=== PATIENT | male | born 1980 | race Caucasian/White ===

== ENCOUNTER 2016-09-29 14:52 | Inpatient (IN) | payer OTHER, SELFPAY ==
[~2016-09-29] VITALS: Ht 175.3 cm; Wt 92.1 kg
[2016-09-29] MEDS ORDERED: ALPR0.5T3 (15:11)
[2016-09-29 15:35] LABS: RED CELL DISTRIBUTION WIDTH 12.5 % (11.5-14.5); WHITE BLOOD COUNT 7.8 K/mm3 (4.0-10.0)
[2016-09-29 16:00] LABS: ALBUMIN/GLOBULIN RATIO 1.14 (1.00-1.93); ALKALINE PHOSPHATASE 69 U/L (45-117); ALT/SGPT 36 U/L (12-78); ANION GAP 7 MEQ/L (8-16); AST/SGOT 11 U/L (15-37); BILIRUBIN,DIRECT < 0.1 MG/DL (0.0-0.2); BILIRUBIN,TOTAL 0.3 MG/DL (0.2-1.0); BLOOD UREA NITROGEN 10 MG/DL (7-18); CALCIUM LEVEL 8.6 MG/DL (8.5-10.1); CARBON DIOXIDE LEVEL 27 MEQ/L (21-32); CHLORIDE LEVEL 108 MEQ/L (98-107); GLOMERULAR FILTRATION RATE > 60.0 (>60); GLUCOSE, FASTING 99 MG/DL (70-105); POTASSIUM SERUM 4.2 MEQ/L (3.5-5.1); SODIUM LEVEL 142 MEQ/L (136-145); TOTAL PROTEIN 7.5 GM/DL (6.4-8.2)
[2016-09-29 16:01] LABS: METHADONE URINE NEGATIVE (NEGATIVE)
--- NOTE | 2016-09-29 17:21 | REP ---
CHEST, TWO VIEWS: There is no evidence of acute infiltrate. No pleural effusion is seen. The heart is normal in size. The mediastinal silhouette is unremarkable. The visualized osseous structures are intact. IMPRESSION: No acute pulmonary disease. Signed by Wesley Bejarano MD 09/29/2016 08:06 P
[2016-09-29] MEDS ORDERED: DIVA500T3 PO (17:34)
[2016-09-29] MEDS ORDERED: XANA0.5T PO (17:34)
[2016-09-29 20:34] VITALS: BP 137/80
[2016-09-29] MEDS ORDERED: ACETAMINOPHEN TAB 650MG DOSE (2X325MG) PO PRN (21:30)
[2016-09-29] MEDS ORDERED: MAALOX 30 ML SUSP *UDC PO PRN (21:30)
[2016-09-29] MEDS ORDERED: chlordiazePOXIDE 25 MG CAP PO PRN (21:30)
[2016-09-29] MEDS ORDERED: traZODone 50 MG TAB PO PRN (21:30)
[2016-09-29] MEDS ORDERED: MOM 30ML SUSPENSION UDC PO PRN (21:30)
[2016-09-29] MEDS: DIVALPROEX 250 MG TAB PO SCH (22:01)
[2016-09-30 06:44] VITALS: BP 128/67
[2016-09-30] MEDS: DIVALPROEX 250 MG TAB PO SCH (11:51)
--- NOTE | 2016-09-30 16:37 | ECGEPIP ---
Stationary ECG Study [facility] - ED Test Date: 2016-09-29 Pat Name: STANFORD HECK Department: Room: - Gender: M [employer]vertising Job Titles: rn : 1980 Requested By: KYAW BORRERO Order Number: [id number] Reading MD: Zahraa Nicole Measurements Intervals [place] Rate: 74 P: 34 AR: 137 QRS: 5 QRSD: 103 T: 23 QT: 338 QTc: 376 Interpretive Statements SINUS RHYTHM WITH SINUS ARRHYTHMIA NONSPECIFIC T-WAVE ABNORMALITY NO PRIOR FOR COMPARISON Electronically Signed On 09-30-2016 16:37:12 EDT by Zahraa Nicole
[2016-09-30 18:00] VITALS: BP 147/78
[2016-09-30] MEDS: traZODone 50 MG TAB PO PRN (21:03)
[2016-09-30] MEDS: DIVALPROEX 250MG *ER* TAB PO SCH (21:04)
[2016-09-30] MEDS: hydrOXYzine 50 MG TAB PO PRN (21:04)
--- NOTE | 2016-10-01 01:58 | MHHPE ---
DATE OF ADMISSION: 09/29/2016 LEGAL STATUS ON ADMISSION: 9.39 legal status CHIEF COMPLAINT: "I don't have to be here." HISTORY OF PRESENT ILLNESS: 36-year-old male admitted to our unit in a 9.39 legal status. According to the chart, the patient was evaluated in the emergency department. He appeared to be angry and anxious. It is stated that his father called earlier and stated that he was concerned about the patient being depressed due to his divorce and visitation agreement with his children and also that the patient is having financial problems. The father reported that the patient made suicidal statements that he would kill himself because of feeling like a burden to everyone. The father also said that the patient is acting paranoid stating that someone has been messing with his phone. He has called [employer] complaining of such and had them come to his house to check on the phone equipment. It is reported that he called [employer] again before admission. The patient states that he has been using cocaine, most recently two days ago. He was discharged from [facility] one week ago. The patient is minimizing the chain of events and denying suicidal ideation and the fact that he needs to be here. After he was discharged from the hospital, he was prescribed to take Depakote, but says that he has not been taking it in two days because "it makes me feel tired and foggy." During the interview today, the patient reports excessive sedation. The patient is lying in bed with his eyes closed. He reports that the medication. He is making him very drowsy and he is making statements such as "When I am discharged from the hospital, I will be getting out of the state." The patient reports having very poor social support and he said that "in the last week or two everybody is gone." The patient reports no support from friends or family. During the interview, there is no evidence of psychotic symptoms. No auditory or visual hallucinations. The patient appears angry, although he states that he is not angry. PAST MEDICAL HISTORY: The patient denies any acute medical problems. PAST PSYCHIATRIC HISTORY: The patient states that he was diagnosed with bipolar disorder and cocaine dependency and was supposed to take Depakote 500 mg at bedtime but has not been taking it because of the side effects from medication with excessive sedation. FAMILY PSYCHIATRIC HISTORY: The patient denies any psychiatric family history. The patient also denies any drugs or alcohol problem in any relative. SUBSTANCE ABUSE HISTORY: The patient reports using cocaine and wants to get sober. SOCIAL HISTORY: The patient is living by himself. He states that he has no support system. He is unemployed now. 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 He was raised by both parents. The patient denies any abuse or neglect during childhood. Reports a completely normal childhood. The patient graduated high school. SUBSTANCE ABUSE HISTORY: The patient admits using cocaine. REVIEW OF SYSTEMS: CONSTITUTIONAL: No weight loss, fevers, chills, weakness, or fatigue. HEENT: No visual loss, blurry vision, double vision, or yellow sclerae. No hearing loss, sneezing, congestion, runny nose or sore throat. SKIN: No rash or itching. CARDIOVASCULAR: No chest pain, chest pressure, chest discomfort, palpitations, or edema. RESPIRATORY: No shortness of breath, cough or sputum. GASTROINTESTINAL: No anorexia, nausea, vomiting, or diarrhea. No abdominal pain or blood. GENITOURINARY: No burning or pain on urination. NEUROLOGIC: No headache, dizziness, syncope, paralysis, ataxia, numbness or tingling. MUSCULOSKELETAL: No muscle, back pain, joint pain or stiffness. HEMATOLOGIC: No anemia, bleeding or bruising. LYMPHATICS: No history of splenectomy. ENDOCRINOLOGIC: No reports of sweating, cold or heat intolerance. No polyuria or polydipsia. ALLERGIES: No history of asthma, hives, eczema or rhinitis. PHYSICAL EXAMINATION : As per physician's assistant professor sculpture. LABORATORIES ON ADMISSION: Complete blood count (CBC) within normal limits. Comprehensive metabolic panel (CMP) is unremarkable. TSH within normal limits. Blood alcohol level is negative. Urine drug screen is positive for cocaine. MENTAL STATUS EXAMINATION: The patient is dressed in [facility]. The patient is cooperative during the examination. Speech is soft and monotone. Has poor eye contact. . Mood is anxious and depressed. Affect is restricted and somewhat angry. The patient is oriented to time, place, person and situation. Maintains attention and concentration fairly. Instant recall, recent and remote memory are intact. Thought processes are coherent, logical and goal directed. The patient does not have auditory or visual hallucinations. The patient does not have paranoid, persecutory, somatic, grandiose or catholic delusions. The patient denies suicidal or homicidal ideation, although he is minimizing all the symptoms in order to be discharged as soon as possible. Judgment and insight are limited. DIAGNOSES: AXIS I: Unspecified depressive disorder, rule out major depressive disorder versus substance induced mood disorder. Cocaine dependency. AXIS II: Deferred. AXIS III: None acute. INITIAL TREATMENT PLAN: Patient was admitted on a 9.39 legal status. Complete history was obtained. With his permission, family will be contacted, and database will be expanded. His medication regimen will be reviewed and changed accordingly. He will be provided with protected environment. He will be treated with individual, group, and milieu therapies. He will also receive supportive psychoeducation. Discharge planning will commence immediately. Length of stay will be between 7 and 10 days. Outpatient followup will be strongly recommended. The treatment plan will focus initially on depression, risk for suicide and substance abuse.
[2016-10-01 06:28] VITALS: BP 130/58
[2016-10-01 18:00] VITALS: BP 164/75
[2016-10-01] MEDS: hydrOXYzine 50 MG TAB PO PRN (19:59)
[2016-10-01] MEDS: DIVALPROEX 250MG *ER* TAB PO SCH (20:00)
--- NOTE | 2016-10-02 02:50 | IPN ---
DATE OF SERVICE: 10/01/2016 36-year-old male admitted to the unit for depression and suicidal ideation and cocaine abuse. SUBJECTIVE: "I'm about the same." OBJECTIVE: Patient continues to report excessive sedation from the medication, although the Depakote has been decreased from 500 mg to 250 mg at bedtime. Patient stays in bed, has little interaction with other patients and staff. No evidence of psychotic features. MENTAL STATUS EXAMINATION: Patient is dressed in [facility]. Patient is cooperative, has poor eye contact. Speech is soft and monotone. Mood is depressed and anxious. Affect is restricted. No evidence of delusions or hallucinations. Memory is fair. Patient is fully oriented. Associations are intact. Thinking is logical. Thought content is appropriate. Patient is able to contract for safety during the interview. Insight and judgment is limited. ASSESSMENT: 1. Depression. 2. Suicidal ideation. 3. Cocaine dependency. PLAN: 1. Continue with Depakote 250 mg by mouth nightly. 2. Continue trazodone 50 mg by mouth nightly as needed for insomnia. 3. Continue close monitoring. 4. Continue medication management, individual and group therapy.
[2016-10-02 07:00] VITALS: BP 133/83
--- NOTE | 2016-10-02 10:32 | MHIPNPDOC ---
[facility] Progress Note Progress Note DATE OF SERVICE: 10/02/16 HISTORY: Patient is 36-year-old male admitted after being evaluated in the emergency room, is brought in for evaluation after father called indicating concerns about patient being depressed due to his divorce, visitation agreement , and financial problems. Patient reportedly made suicidal statements that he would kill himself due to feeling as if he is a burden to everyone. Father also reportedly indicated the patient had been exhibiting paranoia and called [employer] to request that they come to his house to check his phone equipment. Patient was discharged from [facility] one week ago on Depakote 500 mg hs, last used cocaine 2 days ago. [employer] was also informed by receiving coordinator the patient's father apparently called over the weekend indicated the patient has made multiple phone calls to father's residence threatening father safety. Patient denies history of suicidal ideation, however, per ER note, indicated that prior to admission to [facility] he had told others he had a shotgun in his mouth. [employer] met with patient today to assess treatment by wrist on inpatient unit. Patient relates current anxiety level is 5/10, depression 5/10, denies suicidal and homicidal ideation, denies auditory and visual hallucinations, denies urge to engage in self-injurious behavior. Patient indicates he has been taking Depakote for approximately 1-2 weeks, started taking medication while in [facility], states side effects of fatigue and increased appetite are unacceptable, admitting provider has initiated taper, patient indicates he is "not sure" if he is interested in trialing another medication to address mood instability and depression. Patient adds he cannot remember other medications he is child, requests that [facility] history be requested before deciding about new medication trial. Patient reportedly stopped taking Depakote which was prescribed to him while he was a [facility] due to side effects noting , "ever since I started all I do is eat and sleep." Patient states he did not follow up with outpatient services post discharge from [facility]. Patient reports drastically reduced energy level since starting Depakote, denies challenges with concentration and focus, denies changes to weight, reports hypersomnia. Patient denies symptoms of craving or withdrawal and presents with no signs of acute distress at time of interaction. Patient lives alone and states he has poor support, is currently very concerned about court case scheduled for to establish custody of his 3 children notes children have been staying with who approximately one month ago left the area for 30 days after joining the [employer] without reportedly telling anyone. Patient indicates his children are currently living "somewhere in [place]," adds his is due back from training today or in the near future. VITAL SIGNS: See below. NEW TEST RESULTS: No new results. Labs at time of admission indicate elevated chloride and low anion gap, AST. MEDICAL/SURGICAL HISTORY: Patient denies, also denies history of head injury or seizure UDS positive for cocaine 09/29/16 chest x-ray negative 09/29/16 EKG sinus rhythm with sinus arrhythmia and nonspecific T-wave abnormality no prior for comparison. Patient is asymptomatic, PA is aware, follow-up outpatient CURRENT MEDICATIONS: See below. MENTAL STATUS EXAMINATION: Patient is a 36-year old male, who is cooperative, frustrated but pleasant, exhibits good personal hygiene, makes poor eye contact, ambulates with steady gait, appears stated age. Speech: Is of normal rate, rhythm, volume, monotone, coherent Language skills are within normal limits Thought processes including: Linear, logical, goal-directed. Thought content: Rational, logical, no tangentiality noted, denies paranoia, perseverative related to divorce and child custody Description of associations: Intact Description of abnormal or psychotic thoughts: Denies suicidal or homicidal ideation, denies auditory or visual hallucinations, does not appear to be responding to internal stimuli, does not endorse bizarre or seemingly paranoid ideation, denies preoccupation with violence or obsessions. Judgment: Poor. Insight: Poor. Orientation: A and O 3 Recent and remote memory: Appear intact. Attention span and concentration: Adequate. Language: Adequate. Fund of knowledge: Within normal limits. Mood: "Upset about my kids and I'm worried about court on , and I'm worried about my job." Patient appears anxious and depressed, mood lability noted Affect: Blunted, patient is tearful 3 during interaction. DIAGNOSES: Unspecified mood disorder, rule out bipolar's order, rule out major depressive disorder, rule out substance-induced mood disorder. Cocaine use disorder, rule out polysubstance use disorder ASSESSMENT: Patient is 36-year-old male who appears to be slowly adjusting to unit, is visible and attending most groups, socializes selectively with peers, has not presented with behavior management challenges, is cooperative with staff. Patient indicates he does not know why he has been admitted to the hospital, is minimizing symptoms, and minimizes events which preceded current hospitalization. Patient is requesting continuation of Depakote taper, indicates medication side effects of fatigue and increased appetite are unacceptable, taper was begun by admitting provider, will continue as tolerated by patient. [employer] discussed medication options with patient who indicates he cannot remember what medications he has taken in the past, has requested the [facility] [place] history be retrieved. Will evaluate new medication trial with patient as tolerated. Patient has been using hydroxyzine intermittently to address symptoms of anxiety PRN, also utilizing trazodone PRN to address sleep challenges, is aware he has medication available to him should he begin to experience symptoms of craving or withdrawal. Patient denies medication side effects. Patient denies current suicidal or homicidal ideation and is able to verbalize how to access supportive services on the unit if needed. Will monitor patient's response to medications, medication side effects , and response to new medication trial. Will also evaluate patient safety, resolution of suicidal ideation, and readiness for discharge. Patient indicates at time of discharge he plans to return home and follow-up with outpatient provider. MANAGEMENT PLAN: Continue Depakote 250 mg po q hs with plan to continue taper and discontinue. Continue trazodone 50 mg by po q hs PRN insomnia, hydroxyzine 50 mg po q 6 hours PRN anxiety/agitation, Librium 25 mg TID PRN benzo withdrawal Maintain safety precautions Patient to attend groups and participate in unit programming to develop coping strategies Engage patient in discharge planning process and arrange meeting with command to evaluate safe discharge planning when appropriate Patient to follow up with Volodymyr AKHTAR upon discharge TIME SPENT: 35 minutes. Vital Signs Vital Signs Date Time Temp Pulse Resp B/P (MAP) Pulse Ox O2 Delivery O2 Flow Rate FiO2 10/02/16 07:00 97.9 58 18 133/83 (100) 09/29/16 20:34 97 Room Air Current Medications Current Medications Acetaminophen (Tylenol Tab) 650 mg Q6HP PRN PO HEADACHE or DISCOMFORT Last administered on 09/30/16t 11:53; Start 09/29/16 at 21:30; Stop 10/29/16 at 21:29 Al Hydrox/Mg Hydrox/Simethicone (Mylanta) 30 ml Q4HP PRN PO HEARTBURN/ INDIGESTION; Start 09/29/16 at 21:30; Stop 10/29/16 at 21:29 Chlordiazepoxide (Librium) 25 mg TIDP PRN PO BENZO WITHDRAWL; Start 09/29/16 at 21:30; Stop 10/06/16 at 21:29 Divalproex Sodium (Depakote Er) 250 mg QHS PO Last administered on 10/01/16 20 :00; Start 09/30/16 at 21:00; Stop 10/30/16 at 20:59 Divalproex Sodium (Depakote) 250 mg BID PO Last administered on 09/30/16 11:51 ; Start 09/29/16 at 21:00; Stop 09/30/16 at 12:31; Status DC Home Med (Med Rec Complete!) ASDIRECTED XX ; Start 09/29/16 at 17:45; Stop 05/06 at 17:45; Status DC Hydroxyzine HCl (Atarax) 50 mg Q6HP PRN PO ANXIETY/AGITATION Last administered on 10/01/16 19:59; Start 09/29/16 at 21:30; Stop 10/29/16 at 21:29 Magnesium Hydroxide (Milk Of Magnesia) 30 ml DAILYPRN PRN PO CONSTIPATION; Start 09/29/16 at 21:30; Stop 10/29/16 at 21:29 Trazodone HCl (Desyrel) 50 mg QHSP PRN PO INSOMNIA Last administered on 21:03; Start 09/30/16 at 12:30; Stop 10/30/16 at 12:29 Trazodone HCl (Desyrel) 100 mg QHSP PRN PO INSOMNIA Last administered on 22:01; Start 09/29/16 at 21:30; Stop 09/30/16 at 12:31; Status DC Allergies Coded Allergies: Bee Venom (Unverified Allergy, Mild, SWELLING, 08/20/12) Erythromycin (Verified Allergy, Unknown, 09/29/16) Jaida Ballard October 02, 2016 10:32
--- NOTE | 2016-10-02 10:58 | HPEPDOC ---
Medical History and Physical Date of Admission September 29, 2016 at 18:58 History and Physical PCP: Dr Healy ATTENDING: Dr. Silvano Mauro HPI: 36 yo M admitted to [facility] for unspecified depressive disorder, being medically examined today. No acute medical complaints today. Denies any fevers, chills, weakness, fatigue, VU, CP, SOB, cough, palpitations, abdominal pain, N/V /D or changes in bowel or bladder habits. PMHx: Bipolar disorder Anxiety Depression History of SI, discharged from [facility] approximately 1 week ago. PSHX: Denies SOCHX: Resides in: [facility] Marital Status: Kids: 3 Employment: Unemployed Tobacco use: Denies ETOH: States he consumed beer prior to admission otherwise he had not been consuming any alcohol from May to September. Illicit Drugs: States has used cocaine 3 IV Drug Use: Denies Tattoos done unprofessionally: Denies FAMHX: Mother: Alive, unknown Father: Alive, unknown Siblings: One brother Alive, well Children: Alive, well Unexpected deaths due to medical reasons: None. ROS: As noted in HPI, otherwise 11pt ROS of systems reviewed and unremarkable. PE: GEN: 36 yo M, appears stated age. Well-nourished, well developed. No acute distress. Alert and oriented x 3. Pleasant, interactive. HEENT: Normocephalic, atraumatic. Pupils are equal, round, and reactive to light. Extraocular movements are intact. No nystagmus appreciated. Sclera are nonicteric. Conjunctiva without injection. Nose midline. Nasal turbinates without bogginess. EACs both patent BL. TMs both visualized and [place] with good cone of light, no bulging or erythema. No facial asymmetry. Moist mucous membranes. Dentition fair. Pharynx pink and moist, no cobblestoning. Neck supple , trachea midline. No lymphadenopathy or thyromegaly appreciated. CHEST: Regular rate and rhythm, +S1, +S2 LUNGS: Clear to auscultation bilaterally. No wheezes, rales, or rhonchi. Breathing appears symmetric and easy. Patient is speaking in full sentences. No accessory muscle use. ABD: Round, soft, non-tender, non-distended. +Bowel sounds throughout. No rebound or guarding. No costovertebral angle tenderness. EXT: Pulses 2+ bilaterally dorsalis pedis and radial. No lower extremity edema appreciated. SKIN: [place], dry, warm. Capillary refill <2sec. No rashes. NEURO: Alert and oriented x 3. Cranial nerves III-XII are intact. No focal deficits appreciated. EK09/29/16 SINUS RHYTHM WITH SINUS ARRHYTHMIA 74bpm NONSPECIFIC T-WAVE ABNORMALITY NO PRIOR FOR COMPARISON CXR 09/29/16 No acute pulmonary disease. A&P: 36 yo M admitted to [facility] for unspecified depressive disorder 1. Psych. Plan per Psychiatry. EKG on file. 2. Borderline EKG. No cardiac signs or symptoms appreciated on exam, follow with PCP. 3. Follow up with PCP on discharge. 4. Substance use. Per psychiatry. 5. René, staff member, present throughout exam. Vital Signs Vital Signs Date Time Temp Pulse Resp B/P (MAP) Pulse Ox O2 Delivery O2 Flow Rate FiO2 10/02/16 07:00 97.9 58 18 133/83 (100) 09/29/16 20:34 97 Room Air Laboratory Data Labs 24H Item Value Date Time White Blood Count 7.8 K/mm3 09/29/16 1517 Red Blood Count 5.33 M/mm3 09/29/16 1517 Hemoglobin 16.0 g/dl 09/29/16 1517 Hematocrit 46.9 % 09/29/16 1517 Mean Corpuscular Volume 88.0 fl 09/29/16 1517 Mean Corpuscular Hemoglobin 30.0 pg 09/29/16 151 Mean Corpuscular Hemoglobin Concent 34.0 g/dl 09/29/16 1517 Red Cell Distribution Width 12.5 % 09/29/16 1517 Platelet Count 385 k/mm3 09/29/16 1517 Sodium Level 142 MEQ/L 09/29/16 1517 Potassium Level 4.2 MEQ/L 09/29/16 1517 Chloride Level 108 MEQ/L H 09/29/16 1517 Carbon Dioxide Level 27 MEQ/L 09/29/16 1517 Anion Gap 7 MEQ/L L 09/29/16 1517 Blood Urea Nitrogen 10 MG/DL 09/29/16 1517 Creatinine 1.00 MG/DL 09/29/16 1517 Glomerular Filtration Rate > 60.0 09/29/16 1517 Fasting Glucose 99 MG/DL 09/29/16 1517 Calcium Level 8.6 MG/DL 09/29/161516 Total Bilirubin 0.3 MG/DL 09/29/161516 Direct Bilirubin < 0.1 MG/DL 09/29/16 1517 Aspartate Amino Transf (AST/SGOT) 11 U/L L 09/29/16 1517 Alanine Aminotransferase (ALT/SGPT) 36 U/L 09/29/16 1517 Alkaline Phosphatase 69 U/L 09/29/16 1517 Total Protein 7.5 GM/DL 09/29/16 1517 Albumin 4.0 GM/DL 09/29/16 1517 Albumin/Globulin Ratio 1.14 09/29/16 151 Thyroid Stimulating Hormone (TSH) 1.630 uIU/ML 09/29/16 151 Salicylates Level < 1.7 MG/DL L 09/29/16 151 Urine Opiates Screen NEGATIVE 09/29/16 151 Urine Methadone Screen NEGATIVE 09/29/16 1517 Acetaminophen Level < 2.0 UG/ML L 09/29/16 151 Urine Barbiturates Screen NEGATIVE 09/29/16 1517 Urine Phencyclidine Screen NEGATIVE 09/29/16 1517 Urine Amphetamines Screen NEGATIVE 09/29/16 1517 Urine Benzodiazepines Screen NEGATIVE 09/29/16 1517 Urine Cocaine Metabolite Screen POSITIVE H 09/29/16 151 Urine Cannabinoids Screen NEGATIVE 09/29/161516 Ethyl Alcohol Level < 0.003 % 09/29/161516 Home Medications Scheduled Divalproex Sodium (Divalproex Sodium Dr) 500 Mg Tab, 500 MG PO QHS for MOOD Scheduled PRN Alprazolam (Xanax) 0.5 Mg Tab, 0.5 MG PO TID PRN for ANXIETY Allergies Coded Allergies: Bee Venom (Unverified Allergy, Mild, SWELLING, 08/20/12) Erythromycin (Verified Allergy, Unknown, 09/29/16) Vanessa Woody October 02, 2016 10:58
[2016-10-02] MEDS: hydrOXYzine 50 MG TAB PO PRN (17:41)
[2016-10-02 18:00] VITALS: BP 134/74
[2016-10-02] MEDS: DIVALPROEX 250MG *ER* TAB PO SCH (21:08)
[2016-10-03] MEDS: hydrOXYzine 50 MG TAB PO PRN ×3 (00:11→21:17)
[2016-10-03] MEDS: traZODone 50 MG TAB PO PRN (00:11)
[2016-10-03 06:39] VITALS: BP 152/91
--- NOTE | 2016-10-03 15:54 | MHIPNPDOC ---
[facility] Progress Note Progress Note DATE OF SERVICE: 10/03/16 HISTORY: Patient is 36-year-old male admitted after being evaluated in the emergency room, is brought in for evaluation after father called indicating concerns about patient being depressed due to his divorce, visitation agreement , and financial problems. Patient reportedly made suicidal statements that he would kill himself due to feeling as if he is a burden to everyone. Father also reportedly indicated the patient had been exhibiting paranoia and called [facility] to request that they come to his house to check his phone equipment. Patient was discharged from [facility] 1.5 weeks ago on Depakote 500 mg hs , last used cocaine 2 days ago. Occupational Therapy Aide was also informed by health coordinator the patient's father apparently called over the weekend indicated the patient has made multiple phone calls to father's residence threatening father safety. Patient denies history of suicidal ideation, however, per ER note , indicated that prior to admission to [facility] he had told others he had a shotgun in his mouth. Occupational Therapy Aide met with patient today to assess treatment by wrist on inpatient unit. Patient relates current anxiety level is 5/10, depression 5/10, denies suicidal and homicidal ideation, denies auditory and visual hallucinations, denies urge to engage in self-injurious behavior. Patient remains in agreement with Depakote discontinuation and medication options were discussed today with patient who expresses willingness to trial Seroquel in effort to address mood and symptoms of depression. [facility] background information received today, patient apparently declined Seroquel and Latuda trial while in treatment there citing lack of insurance, patient also apparently neglected to follow through with outpatient services post discharge from [facility]. Patient has been utilizing hydroxyzine PRN to address symptoms of anxiety, indicates medication is effective and he denies medication side effects. Patient reports drastically reduced energy level since starting Depakote, denies challenges with concentration and focus, denies changes to weight, reports ongoing hypersomnia. Patient denies symptoms of craving or withdrawal and presents with no signs of acute distress at time of interaction. Patient lives alone and states he has poor support, remains very concerned about court case scheduled for to establish custody of his 3 children notes children have been staying with who approximately one month ago left the area for 30 days after joining the [employer] without reportedly telling anyone. Patient indicates his children are currently living "somewhere in [place]," adds his is due back from training today or in the near future. Per health coordinator, patient declined insurance application on 10/03/16. I-Stop review completed. VITAL SIGNS: See below. NEW TEST RESULTS: No new results. Labs at time of admission indicate elevated chloride and low anion gap, AST. MEDICAL/SURGICAL HISTORY: Patient denies, also denies history of head injury or seizure UDS positive for cocaine 09/29/16 chest x-ray negative 09/29/16 EKG sinus rhythm with sinus arrhythmia and nonspecific T-wave abnormality no prior for comparison. Patient is asymptomatic, PA is aware, follow-up outpatient CURRENT MEDICATIONS: See below. MENTAL STATUS EXAMINATION: Patient is a 36-year old male, who is cooperative, frustrated, irritable, exhibits adequate personal hygiene, makes poor eye contact, ambulates with steady gait, appears stated age. Speech: Is of normal rate, rhythm, volume, monotone, coherent Language skills are within normal limits Thought processes including: Linear, logical, goal-directed. Thought content: Rational, logical, no tangentiality noted, denies paranoia, perseverative related to divorce and child custody Description of associations: Intact Description of abnormal or psychotic thoughts: Denies suicidal or homicidal ideation, denies auditory or visual hallucinations, does not appear to be responding to internal stimuli, does not endorse bizarre or seemingly paranoid ideation, denies preoccupation with violence or obsessions. Judgment: Poor. Insight: Poor. Orientation: A and O 3 Recent and remote memory: Appear intact. Attention span and concentration: Adequate. Language: Adequate. Fund of knowledge: Within normal limits. Mood: "Upset about being here when I don't need to be." Patient appears anxious and depressed, mood lability noted Affect: Blunted DIAGNOSES: Unspecified mood disorder, rule out bipolar order with depressed mood , type II, rule out major depressive disorder, rule out anxiety disorder, rule out substance-induced mood disorder. Cocaine use disorder, severe, rule out polysubstance use disorder ASSESSMENT: Patient is 36-year-old male who appears to be slowly adjusting to unit, is visible and attending most groups, socializes selectively with peers, has not presented with behavior management challenges, is cooperative with staff. Patient remains irritable, reiterates today he does not know why he is in the hospital, minimizes symptoms, events, and substance abuse which occurred prior to current hospitalization. Patient has requested Depakote taper which is now completed and is today in agreement with initiating trial Seroquel in effort to address mood and symptoms of depression. Patient has been taking hydroxyzine intermittently to address symptoms of anxiety PRN, also utilizing trazodone PRN to address sleep challenges, is aware he has medication available to him should he begin to experience symptoms of craving or withdrawal. Patient denies medication side effects. Patient denies current suicidal or homicidal ideation and is able to verbalize how to access supportive services on the unit if needed. Will monitor patient's response to medications, medication side effects, and response to new medication trial. Will also evaluate patient safety, resolution of suicidal ideation, and readiness for discharge. Patient indicates at time of discharge he plans to return home and follow-up with outpatient provider. MANAGEMENT PLAN: Discontinue Depakote and trazodone. Initiate Seroquel 50 mg po q hs. Continue hydroxyzine 50 mg po q 6 hours PRN anxiety/agitation and Librium 25 mg TID PRN benzo withdrawal Maintain safety precautions Patient to attend groups and participate in unit programming to develop coping strategies Engage patient in discharge planning process and arrange meeting with support system to ensure safe discharge planning when appropriate Patient to follow up with PCM upon discharge TIME SPENT: 35 minutes. Vital Signs Vital Signs Date Time Temp Pulse Resp B/P (MAP) Pulse Ox O2 Delivery O2 Flow Rate FiO2 10/03/16 06:39 97.4 54 16 152/91 (111) 09/29/16 20:34 97 Room Air Current Medications Current Medications Acetaminophen (Tylenol Tab) 650 mg Q6HP PRN PO HEADACHE or DISCOMFORT Last administered on 09/30/16t 11:53; Start 09/29/16 at 21:30; Stop 10/29/16 at 21:29 Al Hydrox/Mg Hydrox/Simethicone (Mylanta) 30 ml Q4HP PRN PO HEARTBURN/ INDIGESTION; Start 09/29/16 at 21:30; Stop 10/29/16 at 21:29 Chlordiazepoxide (Librium) 25 mg TIDP PRN PO BENZO WITHDRAWL; Start 09/29/16 at 21:30; Stop 10/06/16 at 21:29 Divalproex Sodium (Depakote Er) 250 mg QHS PO Last administered on 10/02/16 21 :08; Start 09/30/16 at 21:00; Stop 10/03/16 at 15:27; Status DC Divalproex Sodium (Depakote) 250 mg BID PO Last administered on 09/30/16 11:51 ; Start 09/29/16 at 21:00; Stop 09/30/16 at 12:31; Status DC Home Med (Med Rec Complete!) ASDIRECTED XX ; Start 09/29/16 at 17:45; Stop 05/06 at 17:45; Status DC Hydroxyzine HCl (Atarax) 50 mg Q6HP PRN PO ANXIETY/AGITATION Last administered on 10/03/16 14:43; Start 09/29/16 at 21:30; Stop 10/29/16 at 21:29 Magnesium Hydroxide (Milk Of Magnesia) 30 ml DAILYPRN PRN PO CONSTIPATION; Start 09/29/16 at 21:30; Stop 10/29/16 at 21:29 Quetiapine Fumarate (SEROquel) 50 mg QHS PO ; Start 10/03/16 at 21:00; Stop at 20:59 Trazodone HCl (Desyrel) 50 mg QHSP PRN PO INSOMNIA Last administered on 00:11; Start 09/30/16 at 12:30; Stop 10/03/16 at 15:31; Status DC Trazodone HCl (Desyrel) 100 mg QHSP PRN PO INSOMNIA Last administered on 22:01; Start 09/29/16 at 21:30; Stop 09/30/16 at 12:31; Status DC Allergies Coded Allergies: Bee Venom (Unverified Allergy, Mild, SWELLING, 08/20/12) Erythromycin (Verified Allergy, Unknown, 09/29/16) Jaida Ballard October 03, 2016 15:54
[2016-10-03 18:25] VITALS: BP 130/66
[2016-10-03] MEDS ORDERED: QUEtiapine FUMARATE 50 MG TAB PO SCH (21:00)
[2016-10-04 06:45] VITALS: BP 144/79
--- NOTE | 2016-10-04 09:08 | MHIPNPDOC ---
[facility] Progress Note Progress Note DATE OF SERVICE: 10/04/16 HISTORY: Patient is 36-year-old male admitted after being evaluated in the emergency room, is brought in for evaluation after father called indicating concerns about patient being depressed due to his divorce, visitation agreement , and financial problems. Patient reportedly made suicidal statements that he would kill himself due to feeling as if he is a burden to everyone. Father also reportedly indicated the patient had been exhibiting paranoia and called [facility] to request that they come to his house to check his phone equipment. Patient was discharged from [facility] 1.5 weeks ago on Depakote 500 mg hs , last used cocaine 2 days ago. Reservation Sales Agent was also informed by hearing screen coordinator the patient's father apparently called over the weekend indicated the patient has made multiple phone calls to father's residence threatening father safety. Patient denies history of suicidal ideation, however, per ER note , indicated that prior to admission to [facility] he had told others he had a shotgun in his mouth. Reservation Sales Agent met with patient today to assess treatment by wrist on inpatient unit. Patient reports some improvement to symptoms of anxiety and depression, denies suicidal and homicidal ideation, denies auditory and visual hallucinations, denies urge to engage in self-injurious behavior. Patient informs insurance writer, however, that should court regarding custody of his children not go well tomorrow he is "unsure" how he will feel, adds "I will just take off, disappear , I don't know and I don't care anymore," declines to elaborate. Patient is evasive regarding housing, indicates he has an apartment but provides indirect responses to questions pertaining to stability of housing. Patient indicates Seroquel helped to reduce irritability, notes he slept well, is in agreement with increasing dose in effort to address mood and symptoms of depression. Patient continues to experience intermittent symptoms of anxiety, yesterday took 1 dose of Librium stating, "I wasn't experiencing any withdrawal symptoms, it's just what they gave me when I went to ask for medication for anxiety." Patient indicates hydroxyzine is partially effective in addressing symptoms of intermittent anxiety and irritability, is agreeable to trialing low-dose Seroquel PRN. Patient has maintained behavioral control and denies symptoms of aggression and agitation, is able to agree to alert unit staff if he feels symptoms of anxiety, irritability, depression worsen/become unmanageable. Patient continues to refuse Depakote and taper has been completed, indicates energy level remains low and unchanged. Patient denies challenges with concentration and focus, denies symptoms of craving or withdrawal, indicates appetite is stable. Of Note: [facility] background information received, patient apparently declined Seroquel and Latuda trial while in treatment there citing lack of insurance, patient also apparently neglected to follow through with outpatient services post discharge from [facility]. Per [place] paperwork, patient was treated with Depakote and responded well to medication. Patient lives alone, and states he has poor support, remains very concerned about court case scheduled for to establish custody of his 3 children notes children have been staying with who approximately one month ago left the area for 30 days after joining the [employer] without reportedly telling anyone. Patient indicates his children are currently living "somewhere in [place]," adds his is due back from training today or in the near future. Patient has indicated he had joint custody with and is supposed to have children every other weekend and one time during the week, notes does not allow him to visit with his children. Collateral information received by hearing screen coordinator indicates prior to hospitalization at [facility] and current hospitalization patient was disorganized experiencing delusional thinking, psychosis, paranoia, was fixated on computer/phone being tapped, has apartment on which he has not paid rent and from which he may been evicted, has notable cocaine use history. Collateral information also indicates patient had no psychiatric history until approximately one month ago. Collateral information indicates when patient did have contact with children they were left in the care of family member while patient engaged in alcohol/ drug use. Per hearing screen coordinator, patient declined insurance application on 10/03/16. I-Stop review completed. Patient was provided 10 day supply of Xanax 0.5 mg, indicates there exists no leftover medication and denies additional use of benzodiazepines. VITAL SIGNS: See below. NEW TEST RESULTS: No new results. Labs at time of admission indicate elevated chloride and low anion gap, AST. MEDICAL/SURGICAL HISTORY: Patient denies, also denies history of head injury or seizure UDS positive for cocaine 09/29/16 chest x-ray negative 09/29/16 EKG sinus rhythm with sinus arrhythmia and nonspecific T-wave abnormality no prior for comparison. Patient is asymptomatic, PA is aware, follow-up outpatient CURRENT MEDICATIONS: See below. MENTAL STATUS EXAMINATION: Patient is a 36-year old male, who is cooperative, irritable, exhibits adequate personal hygiene, makes poor eye contact, ambulates with steady gait, appears stated age. Speech: Is of normal rate, rhythm, volume, monotone, coherent Language skills are within normal limits Thought processes including: Linear, logical, goal-directed. Thought content: Rational, logical, no tangentiality noted, denies paranoia, perseverative related to divorce and child custody Description of associations: Intact Description of abnormal or psychotic thoughts: Denies suicidal or homicidal ideation, denies auditory or visual hallucinations, does not appear to be responding to internal stimuli, does not endorse bizarre or seemingly paranoid ideation, denies preoccupation with violence or obsessions. Judgment: Poor. Insight: Poor. Orientation: A and O 3 Recent and remote memory: Appear intact. Attention span and concentration: Adequate. Language: Adequate. Fund of knowledge: Within normal limits. Mood: "Upset about being here just because somebody said I was a danger to myself." Patient appears anxious and depressed, mood lability noted Affect: Blunted DIAGNOSES: Unspecified mood disorder, rule out bipolar order with depressed mood , rule out major depressive disorder, rule out substance-induced mood disorder. Cocaine use disorder, severe, rule out polysubstance use disorder ASSESSMENT: Patient is 36-year-old male who appears to be slowly adjusting to unit, is visible and attending some groups, isolates to room at times, socializes selectively with peers, has not presented with behavior management challenges, is cooperative with staff. Patient remains irritable, reiterates today he does not know why he is in the hospital, minimizes symptoms , events, and substance abuse which occurred prior to current hospitalization, denies ever putting gun in mouth. Patient requested Depakote taper has been completed and patient took first dose of Seroquel last night, indicates medication was helpful and is in agreement with dose increase. Patient is also in agreement with discontinuation of hydroxyzine as PRN anxiolytic and initiation of low-dose Seroquel available to him PRN to address symptoms of anxiety/agitation. Patient denies symptoms of craving or withdrawal and is in agreement with his continuation of Librium. Patient denies medication side effects. Patient denies current suicidal or homicidal ideation and is able to verbalize how to access supportive services on the unit if needed. Will monitor patient's response to medications, medication side effects, and response to new medication trial. Will also evaluate patient safety, resolution of suicidal ideation, and readiness for discharge. Patient reiterates today at time of discharge he plans to discharge to home, however, is evasive regarding future plans due to concerns about upcoming court date to address custody of children. Patient states he plans to follow-up with outpatient provider for psychotherapy and medication management; patient stopped taking medications and failed to attend outpatient appointment after recent discharge from hospitalization. email marketing coordinator has been able to make contact with friends and family who have provided background information which conflicts with patient report of events which led to current hospitalization. Reservation Sales Agent recommended inpatient substance abuse treatment for patient who is declining at this time. MANAGEMENT PLAN: Discontinue hydroxyzine and Librium. Increase Seroquel to 75 mg po q hs. Initiate Seroquel 12.5 mg q 8 hours PRN anxiety/agitation Maintain safety precautions Patient to attend groups and participate in unit programming to develop coping strategies Engage patient in discharge planning process and arrange meeting with support system to ensure safe discharge planning when appropriate Patient to follow up with PCM upon discharge TIME SPENT: 35 minutes. Vital Signs Vital Signs Date Time Temp Pulse Resp B/P (MAP) Pulse Ox O2 Delivery O2 Flow Rate FiO2 10/04/16 06:45 97.9 52 18 144/79 (100) 09/29/16 20:34 97 Room Air Current Medications Current Medications Acetaminophen (Tylenol Tab) 650 mg Q6HP PRN PO HEADACHE or DISCOMFORT Last administered on 09/30/16 11:53; Start 09/29/16 at 21:30; Stop 10/29/16 at 21:29 Al Hydrox/Mg Hydrox/Simethicone (Mylanta) 30 ml Q4HP PRN PO HEARTBURN/ INDIGESTION; Start 09/29/16 at 21:30; Stop 10/29/16 at 21:29 Chlordiazepoxide (Librium) 25 mg TIDP PRN PO BENZO WITHDRAWL Last administered on 10/03/16 19:28; Start 09/29/16 at 21:30; Stop 10/06/16 at 21:29 Divalproex Sodium (Depakote Er) 250 mg QHS PO Last administered on 10/02/16 21 :08; Start 09/30/16 at 21:00; Stop 10/03/16 at 15:27; Status DC Divalproex Sodium (Depakote) 250 mg BID PO Last administered on 09/30/16 11:51 ; Start 09/29/16 at 21:00; Stop 09/30/16 at 12:31; Status DC Home Med (Med Rec Complete!) ASDIRECTED XX ; Start 09/29/16 at 17:45; Stop 05/06 at 17:45; Status DC Hydroxyzine HCl (Atarax) 50 mg Q6HP PRN PO ANXIETY/AGITATION Last administered on 10/03/16 21:17; Start 09/29/16 at 21:30; Stop 10/29/16 at 21:29 Magnesium Hydroxide (Milk Of Magnesia) 30 ml DAILYPRN PRN PO CONSTIPATION; Start 09/29/16 at 21:30; Stop 10/29/16 at 21:29 Quetiapine Fumarate (SEROquel) 50 mg QHS PO Last administered on 10/03/16 21: 17; Start 10/03/16 at 21:00; Stop 11/02/16 at 20:59 Trazodone HCl (Desyrel) 50 mg QHSP PRN PO INSOMNIA Last administered on 00:11; Start 09/30/16 at 12:30; Stop 10/03/16 at 15:31; Status DC Trazodone HCl (Desyrel) 100 mg QHSP PRN PO INSOMNIA Last administered on 22:01; Start 09/29/16 at 21:30; Stop 09/30/16 at 12:31; Status DC Allergies Coded Allergies: Bee Venom (Unverified Allergy, Mild, SWELLING, 08/20/12) Erythromycin (Verified Allergy, Unknown, 09/29/16) Jaida Ballard October 04, 2016 09:08
[2016-10-04] MEDS: hydrOXYzine 50 MG TAB PO PRN ×2 (09:29→17:25)
[2016-10-04 18:16] VITALS: BP 130/89
[2016-10-04] MEDS ORDERED: QUEtiapine FUMARATE 12.5 MG HALF-TAB PO PRN (18:45)
[2016-10-04] MEDS ORDERED: QUEtiapine FUMARATE 25 MG TAB PO SCH (21:00)
[2016-10-05 06:41] VITALS: BP 136/83
--- NOTE | 2016-10-05 11:10 | MHIPNPDOC ---
[facility] Progress Note Progress Note DATE OF SERVICE: 10/05/16 HISTORY: Patient is 36-year-old male admitted after being evaluated in the emergency room, is brought in for evaluation after father called indicating concerns about patient being depressed due to his divorce, visitation agreement , and financial problems. Patient reportedly made suicidal statements that he would kill himself due to feeling as if he is a burden to everyone. Father also reportedly indicated the patient had been exhibiting paranoia and called [facility] to request that they come to his house to check his phone equipment. Patient was discharged from [facility] 1.5 weeks ago on Depakote 500 mg hs , last used cocaine 2 days ago. Automatic Beam Warper Tender was also informed by computer security coordinator the patient's father apparently called over the weekend indicated the patient has made multiple phone calls to father's residence threatening father safety. Patient denies history of suicidal ideation, however, per ER note , indicated that prior to admission to [facility] he had told others he had a shotgun in his mouth. Automatic Beam Warper Tender met with patient today to assess treatment by wrist on inpatient unit. Patient reports improvement to symptoms of anxiety and depression, denies suicidal and homicidal ideation, denies auditory and visual hallucinations, denies urge to engage in self-injurious behavior. Patient reports reduction to symptoms of anxiety and depression noting, "I feel better today than I felt in a long time, I slept well and my head is clearer today." Patient denied suicidal and homicidal ideation, denied audiovisual hallucinations, denied urge to engage in self-injurious behavior. Patient spoke openly about desire to stay clean, find suitable housing close to his children so that he can have regular visitation. Patient stated he is hopeful that he will be able to maintain partial custody of children, was future oriented, made requests for assistance with DSS and insurance application procedures and assistance with referral for housing. Patient reported improvement to sleep, denied nightmares, indicated mood is level and denied symptoms of irritability, agitation, and impulsivity. Patient reports improvement to energy level, denies symptoms of craving or withdrawal, states appetite is stable. Patient presented with no signs of acute distress at time of interaction. Of Note: [facility] background information received, patient apparently declined Seroquel and Latuda trial while in treatment there citing lack of insurance, patient also apparently neglected to follow through with outpatient services post discharge from [facility]. Per [facility] paperwork, patient was treated with Depakote and responded well to medication. Collateral information received by computer security coordinator on 10/04/16 indicates prior to hospitalization at [facility] and current hospitalization patient was disorganized experiencing delusional thinking, psychosis, paranoia, was fixated on computer/phone being tapped, has apartment on which he has not paid rent and from which he may been evicted, has notable cocaine use history. Collateral information also indicates patient had no psychiatric history until approximately one month ago. Collateral information indicates when patient did have contact with children they were left in the care of family member while patient engaged in alcohol/ drug use. Per computer security coordinator, patient declined insurance application on 10/03/16. I-Stop review completed. Patient was provided 10 day supply of Xanax 0.5 mg, indicates there exists no leftover medication and denies additional use of benzodiazepines. VITAL SIGNS: See below. NEW TEST RESULTS: No new results. Labs at time of admission indicate elevated chloride and low anion gap, AST. MEDICAL/SURGICAL HISTORY: Patient denies, also denies history of head injury or seizure UDS positive for cocaine 09/29/16 chest x-ray negative 09/29/16 EKG sinus rhythm with sinus arrhythmia and nonspecific T-wave abnormality no prior for comparison. Patient is asymptomatic, PA is aware, follow-up outpatient CURRENT MEDICATIONS: See below. MENTAL STATUS EXAMINATION: Patient is a 36-year old male, who is pleasant and cooperative, more easily engaged, makes improved eye contact, exhibits adequate personal hygiene, ambulates with steady gait, appears stated age. Speech: Is of normal rate, rhythm, volume, monotone, coherent Language skills are within normal limits Thought processes including: Linear, logical, goal-directed. Thought content: Rational, logical, no tangentiality noted, denies paranoia, perseverative related to divorce and child custody Description of associations: Intact Description of abnormal or psychotic thoughts: Denies suicidal or homicidal ideation, denies auditory or visual hallucinations, does not appear to be responding to internal stimuli, does not endorse bizarre or seemingly paranoid ideation, denies preoccupation with violence or obsessions. Judgment: Limited, some improvement noted. Insight: Limited, some improvement noted. Orientation: A and O 3 Recent and remote memory: Appear intact. Attention span and concentration: Adequate. Language: Adequate. Fund of knowledge: Within normal limits. Mood: "I feel much better today, better than I felt the long time." Patient appears less anxious and less depressed, mood lability noted Affect: Blunted but brightens at times, congruent with mood DIAGNOSES: Unspecified mood disorder, rule out bipolar order with depressed mood , rule out major depressive disorder, rule out substance-induced mood disorder. Cocaine use disorder, severe, rule out polysubstance use disorder ASSESSMENT: Patient is 36-year-old male who appears to be slowly adjusting to unit, is visible and attending some groups, isolates to room at times, socializes selectively with peers, has not presented with behavior management challenges, is cooperative with staff. Patient is less irritable today, engageable, continues to minimize symptoms but expresses insight in terms of behavior and events which led to current hospitalization. Patient indicates Seroquel is helpful in reducing symptoms and stabilizing mood, is in agreement with dose increase, denies medication side effects, states he has not needed to use PRN for anxiety/agitation. Patient denies symptoms of craving or withdrawal. Patient denies current suicidal or homicidal ideation and is able to verbalize how to access supportive services on the unit if needed. Will monitor patient's response to medications, medication side effects, and response to new medication trial. Will also evaluate patient safety, resolution of suicidal ideation, and readiness for discharge. Patient indicates today he would like assistance with discharge planning, referrals for housing, assistance with DSS an insurance application procedures. Patient reiterates and prepared for discharge she would like to follow-up with outpatient provider for psychotherapy and medication management; importance of medication compliance was again reviewed with patient. Inpatient substance abuse recommendation was again made, patient continues to decline. MANAGEMENT PLAN: Increase Seroquel to 100 mg po q hs. Continue Seroquel 12.5 mg q 8 hours PRN anxiety/agitation Maintain safety precautions Patient to attend groups and participate in unit programming to develop coping strategies Engage patient in discharge planning process and arrange meeting with support system to ensure safe discharge planning when appropriate Patient to follow up with PCM upon discharge TIME SPENT: 35 minutes. Vital Signs Vital Signs Date Time Temp Pulse Resp B/P (MAP) Pulse Ox O2 Delivery O2 Flow Rate FiO2 10/05/16 06:41 98.4 70 16 136/83 (100) 09/29/16 20:34 97 Room Air Current Medications Current Medications Acetaminophen (Tylenol Tab) 650 mg Q6HP PRN PO HEADACHE or DISCOMFORT Last administered on 09/30/16 11:53; Start 09/29/16 at 21:30; Stop 10/29/16 at 21:29 Al Hydrox/Mg Hydrox/Simethicone (Mylanta) 30 ml Q4HP PRN PO HEARTBURN/ INDIGESTION; Start 09/29/16 at 21:30; Stop 10/29/16 at 21:29 Chlordiazepoxide (Librium) 25 mg TIDP PRN PO BENZO WITHDRAWL Last administered on 10/03/16 19:28; Start 09/29/16 at 21:30; Stop 10/04/16 at 18:42; Status DC Divalproex Sodium (Depakote Er) 250 mg QHS PO Last administered on 10/02/16 21 :08; Start 09/30/16 at 21:00; Stop 10/03/16 at 15:27; Status DC Divalproex Sodium (Depakote) 250 mg BID PO Last administered on 09/30/16 11:51 ; Start 09/29/16 at 21:00; Stop 09/30/16 at 12:31; Status DC Home Med (Med Rec Complete!) ASDIRECTED XX ; Start 09/29/16 at 17:45; Stop 05/06 at 17:45; Status DC Hydroxyzine HCl (Atarax) 50 mg Q6HP PRN PO ANXIETY/AGITATION Last administered on 10/04/16 17:25; Start 09/29/16 at 21:30; Stop 10/04/16 at 18:42; Status DC Magnesium Hydroxide (Milk Of Magnesia) 30 ml DAILYPRN PRN PO CONSTIPATION; Start 09/29/16 at 21:30; Stop 10/29/16 at 21:29 Quetiapine Fumarate (SEROquel) 12.5 mg Q8HP PRN PO anxiety/agitation; Start at 18:45; Stop 11/03/16 at 18:44 Quetiapine Fumarate (SEROquel) 50 mg QHS PO Last administered on 10/03/16 21: 17; Start 10/03/16 at 21:00; Stop 10/04/16 at 18:42; Status DC Quetiapine Fumarate (SEROquel) 75 mg QHS PO Last administered on 10/04/16 21: 52; Start 10/04/16 at 21:00; Stop 11/03/16 at 20:59 Trazodone HCl (Desyrel) 50 mg QHSP PRN PO INSOMNIA Last administered on 00:11; Start 09/30/16 at 12:30; Stop 10/03/16 at 15:31; Status DC Trazodone HCl (Desyrel) 100 mg QHSP PRN PO INSOMNIA Last administered on 22:01; Start 09/29/16 at 21:30; Stop 09/30/16 at 12:31; Status DC Allergies Coded Allergies: Bee Venom (Unverified Allergy, Mild, SWELLING, 08/20/12) Erythromycin (Verified Allergy, Unknown, 09/29/16) Jaida Ballard October 05, 2016 11:10
[2016-10-05 18:00] VITALS: BP_SYST 115; BP_SYST 147; BP_DIAS 53; BP_DIAS 87
[2016-10-05] MEDS ORDERED: QUEtiapine FUMARATE 100 MG TAB PO SCH (21:00)
[2016-10-06 06:30] VITALS: BP 146/85
--- NOTE | 2016-10-06 14:13 | MHIPNPDOC ---
[facility] Progress Note Progress Note DATE OF SERVICE: 10/06/16 HISTORY: Patient is 36-year-old male admitted after being evaluated in the emergency room, is brought in for evaluation after father called indicating concerns about patient being depressed due to his divorce, visitation agreement , and financial problems. Patient reportedly made suicidal statements that he would kill himself due to feeling as if he is a burden to everyone. Father also reportedly indicated the patient had been exhibiting paranoia and called [facility] to request that they come to his house to check his phone equipment. Patient was discharged from [facility] 1.5 weeks ago on Depakote 500 mg hs , last used cocaine 2 days ago. Filtration Operator was also informed by infection control coordinator the patient's father apparently called over the weekend indicated the patient has made multiple phone calls to father's residence threatening father safety. Patient denies history of suicidal ideation, however, per ER note , indicated that prior to admission to [facility] he had told others he had a shotgun in his mouth. Filtration Operator met with patient today to assess treatment progress on inpatient unit. Patient reports improvement to symptoms of anxiety and depression, denies suicidal or homicidal ideation, denies auditory and visual hallucinations, denies urge to engage in self-injurious behavior. Patient indicates he did not sleep well last night due to ruminative thinking related to custody court date which was yesterday, notes "my ex- has been calling all over when she found out I was not in court yesterday." Patient becomes angry when talking about court and ex-, reiterates today desire to find suitable housing close to his children and to obtain DSS/employment, notes he hopes to have at least partial custody of children and find housing close to [place]. Patient indicated "my mind seems a little clearer," feels mood is less labile, denies symptoms of irritability, agitation, and impulsivity. Patient reports improvement to energy level, denies symptoms of craving or withdrawal, states appetite is stable. Patient presented with no signs of acute distress at time of interaction. Of Note: [facility] background information received, patient apparently declined Seroquel and Latuda trial while in treatment there citing lack of insurance, patient also apparently neglected to follow through with outpatient services post discharge from [facility]. Per [facility] paperwork, patient was treated with Depakote and responded well to medication. Collateral information received by infection control coordinator on 10/04/16 indicates prior to hospitalization at [facility] and current hospitalization patient was disorganized experiencing delusional thinking, psychosis, paranoia, was fixated on computer/phone being tapped, has apartment on which he has not paid rent and from which he may been evicted, has notable cocaine use history. Collateral information also indicates patient had no psychiatric history until approximately one month ago. Collateral information indicates when patient did have contact with children they were left in the care of family member while patient engaged in alcohol/ drug use. Per infection control coordinator, patient declined insurance application on 10/03/16. I-Stop review completed. Patient was provided 10 day supply of Xanax 0.5 mg, indicates there exists no leftover medication and denies additional use of benzodiazepines. VITAL SIGNS: See below. NEW TEST RESULTS: No new results. Labs at time of admission indicate elevated chloride and low anion gap, AST. MEDICAL/SURGICAL HISTORY: Patient denies, also denies history of head injury or seizure UDS positive for cocaine 09/29/16 chest x-ray negative 09/29/16 EKG sinus rhythm with sinus arrhythmia and nonspecific T-wave abnormality no prior for comparison. Patient is asymptomatic, PA is aware, follow-up outpatient CURRENT MEDICATIONS: See below. MENTAL STATUS EXAMINATION: Patient is a 36-year old male, who is generally pleasant and cooperative, more easily engaged, makes fair eye contact, exhibits adequate personal hygiene, ambulates with steady gait, appears stated age. Speech: Is of normal rate, rhythm, volume, monotone, coherent Language skills are within normal limits Thought processes including: Linear, logical, goal-directed. Thought content: Rational, logical, no tangentiality noted, denies paranoia but may be experiencing related to housing, perseverative related to divorce and child custody Description of associations: Intact Description of abnormal or psychotic thoughts: Denies suicidal or homicidal ideation, denies auditory or visual hallucinations, does not appear to be responding to internal stimuli, does not endorse bizarre or seemingly paranoid ideation, denies preoccupation with violence or obsessions. Judgment: Limited, some improvement noted. Insight: Limited, some improvement noted. Orientation: A and O 3 Recent and remote memory: Appear intact. Attention span and concentration: Adequate. Language: Adequate. Fund of knowledge: Within normal limits. Mood: "I starting to feel better, clearer." Patient appears less anxious and less depressed, mood lability noted Affect: Blunted but brightens at times, congruent with mood DIAGNOSES: Unspecified mood disorder, rule out bipolar order with depressed mood , rule out major depressive disorder, rule out substance-induced mood disorder. Cocaine use disorder, severe, rule out polysubstance use disorder ASSESSMENT: Patient is 36-year-old male who appears to be slowly adjusting to unit, is visible and attending some groups, isolates to room at times, socializes selectively with peers, has not presented with behavior management challenges, is cooperative with staff. Patient continues to minimize symptoms but expresses some insight in terms of behavior and events which led to current hospitalization, continues to blame father for being in hospital. Patient indicates Seroquel is helpful in reducing symptoms and stabilizing mood , is in agreement with dose increase with change to XR, potential side effects were reviewed with patient who verbalized understanding. Patient denies medication side effects, states he has not needed to use PRN for anxiety/ agitation. Patient denies symptoms of craving or withdrawal. Patient denies current suicidal or homicidal ideation and is able to verbalize how to access supportive services on the unit if needed. Will monitor patient's response to medications and for medication side effects. Will also evaluate patient safety, resolution of suicidal ideation, and readiness for discharge. Patient continues to be receptive to assistance with discharge planning, referrals for housing, assistance with DSS an insurance application procedures. Patient reiterates and prepared for discharge he would like to follow-up with outpatient provider for psychotherapy and medication management; importance of medication compliance was again reviewed with patient. Inpatient substance abuse recommendation was again made, patient continues to decline both inpatient and outpatient treatment. MANAGEMENT PLAN: Change Seroquel to 200 XR mg po at 18:00. Discontinue Seroquel 12.5 mg q 8 hours PRN anxiety/agitation. Restart hydroxyzine 50 mg po q 6 hours PRN anxiety/agitation Maintain safety precautions Patient to attend groups and participate in unit programming to develop coping strategies Engage patient in discharge planning process and arrange meeting with support system to ensure safe discharge planning when appropriate Patient to follow up with PCM upon discharge TIME SPENT: 35 minutes. Vital Signs Vital Signs Date Time Temp Pulse Resp B/P (MAP) Pulse Ox O2 Delivery O2 Flow Rate FiO2 10/06/16 06:30 98.0 55 20 146/85 (105) Current Medications Current Medications Acetaminophen (Tylenol Tab) 650 mg Q6HP PRN PO HEADACHE or DISCOMFORT Last administered on 09/30/16 11:53; Start 09/29/16 at 21:30; Stop 10/29/16 at 21:29 Al Hydrox/Mg Hydrox/Simethicone (Mylanta) 30 ml Q4HP PRN PO HEARTBURN/ INDIGESTION; Start 09/29/16 at 21:30; Stop 10/29/16 at 21:29 Chlordiazepoxide (Librium) 25 mg TIDP PRN PO BENZO WITHDRAWL Last administered on 10/03/16 19:28; Start 09/29/16 at 21:30; Stop 10/04/16 at 18:42; Status DC Divalproex Sodium (Depakote Er) 250 mg QHS PO Last administered on 10/02/16 21 :08; Start 09/30/16 at 21:00; Stop 10/03/16 at 15:27; Status DC Divalproex Sodium (Depakote) 250 mg BID PO Last administered on 09/30/16 11:51 ; Start 09/29/16 at 21:00; Stop 09/30/16 at 12:31; Status DC Home Med (Med Rec Complete!) ASDIRECTED XX ; Start 09/29/16 at 17:45; Stop 05/06 at 17:45; Status DC Hydroxyzine HCl (Atarax) 50 mg Q6HP PRN PO ANXIETY/AGITATION Last administered on 10/04/16 17:25; Start 09/29/16 at 21:30; Stop 10/04/16 at 18:42; Status DC Hydroxyzine HCl (Atarax) 50 mg Q6HP PRN PO ANXIETY/AGITATION; Start 10/06/16 at 13:45; Stop 11/05/16 at 13:44 Magnesium Hydroxide (Milk Of Magnesia) 30 ml DAILYPRN PRN PO CONSTIPATION; Start 09/29/16 at 21:30; Stop 10/29/16 at 21:29 Quetiapine Fumarate (SEROquel XR) 200 mg QHS PO ; Start 10/06/16 at 21:00; Stop 11/05/16 at 20:59 Quetiapine Fumarate (SEROquel) 12.5 mg Q8HP PRN PO anxiety/agitation Last administered on 10/05/16 19:20; Start 10/04/16 at 18:45; Stop 10/06/16 at 14:01 ; Status DC Quetiapine Fumarate (SEROquel) 50 mg QHS PO Last administered on 10/03/16 21: 17; Start 10/03/16 at 21:00; Stop 10/04/16 at 18:42; Status DC Quetiapine Fumarate (SEROquel) 75 mg QHS PO Last administered on 10/04/16 21: 52; Start 10/04/16 at 21:00; Stop 10/05/16 at 11:11; Status DC Quetiapine Fumarate (SEROquel) 100 mg QHS PO Last administered on 10/05/16 21: 17; Start 10/05/16 at 21:00; Stop 10/06/16 at 14:01; Status DC Trazodone HCl (Desyrel) 50 mg QHSP PRN PO INSOMNIA Last administered on 00:11; Start 09/30/16 at 12:30; Stop 10/03/16 at 15:31; Status DC Trazodone HCl (Desyrel) 100 mg QHSP PRN PO INSOMNIA Last administered on 22:01; Start 09/29/16 at 21:30; Stop 09/30/16 at 12:31; Status DC Allergies Coded Allergies: Bee Venom (Unverified Allergy, Mild, SWELLING, 08/20/12) Erythromycin (Verified Allergy, Unknown, 09/29/16) Jaida Ballard October 06, 2016 14:13
[2016-10-06] MEDS ORDERED: QUEtiapine FUMARATE **XR** 200MG TABLET PO SCH ×2 (18:00→21:00)
[2016-10-06] MEDS: QUEtiapine FUMARATE **XR** 200MG TABLET PO SCH (18:00)
[2016-10-06 18:18] VITALS: BP 140/88
[2016-10-07 06:41] VITALS: BP 121/67
[2016-10-07 18:21] VITALS: BP 142/80
[2016-10-07] MEDS: QUEtiapine FUMARATE **XR** 200MG TABLET PO SCH (18:53)
[2016-10-08 06:30] VITALS: BP 138/80
[2016-10-08 18:00] VITALS: BP 132/68
[2016-10-08] MEDS: QUEtiapine FUMARATE **XR** 200MG TABLET PO SCH (18:54)
[2016-10-08] MEDS: hydrOXYzine 50 MG TAB PO PRN (22:42)
[2016-10-09 06:29] VITALS: BP 143/81
--- NOTE | 2016-10-09 11:25 | MHIPNPDOC ---
[facility] Progress Note Progress Note DATE OF SERVICE: 10/09/16 HISTORY: Patient is 36-year-old male admitted after being evaluated in the emergency room, is brought in for evaluation after father called indicating concerns about patient being depressed due to his divorce, visitation agreement , and financial problems. Patient reportedly made suicidal statements that he would kill himself due to feeling as if he is a burden to everyone. Father also reportedly indicated the patient had been exhibiting paranoia and called [facility] to request that they come to his house to check his phone equipment. Patient was discharged from [facility] 1.5 weeks ago on Depakote 500 mg hs , last used cocaine 2 days ago. Volunteer Specialist was also informed by after school coordinator the patient's father apparently called over the weekend indicated the patient has made multiple phone calls to father's residence threatening father safety. Patient denies history of suicidal ideation, however, per ER note , indicated that prior to admission to [facility] he had told others he had a shotgun in his mouth. Volunteer Specialist met with patient today to assess treatment progress on inpatient unit. Patient is observed to be lying in bed, with prompting sits up to meet with teletypewriter installer, is engageable but irritable, indicates he feels he may be experiencing symptoms of head cold. Patient states with first dose increase of Seroquel and change to XR, he felt better, notes medication caused sedation 2 hours after taking and patient states he slept well that night and awoke the next day without feeling "hung over." Patient indicates following 2 nights he attempted to "push through" medication and stayed up to watch television, then experienced insomnia and daytime fatigue the following mornings. Patient is agreeable to trialing medication dosing change from 1800 to hs in effort to improve sleep and avoid morning. Patient denies symptoms of impulsivity and states his mood is less labile. Patient reports ongoing improvement to symptoms of anxiety and depression, denies suicidal or homicidal ideation, denies auditory and visual hallucinations, denies urge to engage in self-injurious behavior. Patient attributes irritability to recent court case, has not made contact with real estate associate attorney, adds he believes he is becoming sick with a head cold. Patient informs teletypewriter installer today he is "not sure" to where he will discharge, indicates he will no longer have his apartment as of the end of the month. Patient is future oriented, however, indicates he plans to get a job and secure housing close to where his children live with his ex- so that he may have contact with his children. Patient denies symptoms of craving or withdrawal, indicates appetite is stable, denies challenges with concentration and focus. Of Note: [facility] background information received, patient apparently declined Seroquel and Latuda trial while in treatment there citing lack of insurance, patient also apparently neglected to follow through with outpatient services post discharge from [facility]. Per [facility] paperwork, patient was treated with Depakote and responded well to medication. Collateral information received by after school coordinator on 10/04/16 indicates prior to hospitalization at [facility] and current hospitalization patient was disorganized experiencing delusional thinking, psychosis, paranoia, was fixated on computer/phone being tapped, has apartment on which he has not paid rent and from which he may been evicted, has notable cocaine use history. Collateral information also indicates patient had no psychiatric history until approximately one month ago, approximately the time patient states he began using cocaine. Collateral information indicates when patient did have contact with children they were left in the care of family member while patient engaged in alcohol/ drug use. Per after school coordinator, patient declined insurance application on 10/03/16. I-Stop review completed. Patient was provided 10 day supply of Xanax 0.5 mg, indicates there exists no leftover medication and denies additional use of benzodiazepines. VITAL SIGNS: See below. NEW TEST RESULTS: No new results. Labs at time of admission indicate elevated chloride and low anion gap, AST. MEDICAL/SURGICAL HISTORY: Patient denies, also denies history of head injury or seizure UDS positive for cocaine 09/29/16 chest x-ray negative 09/29/16 EKG sinus rhythm with sinus arrhythmia and nonspecific T-wave abnormality no prior for comparison. Patient is asymptomatic, PA is aware, follow-up outpatient CURRENT MEDICATIONS: See below. MENTAL STATUS EXAMINATION: Patient is a 36-year old male, who is cooperative, engageable, makes fair eye contact, exhibits adequate personal hygiene, ambulates with steady gait, appears stated age. Speech: Is of normal rate, rhythm, volume, monotone, coherent Language skills are within normal limits Thought processes including: Linear, logical, goal-directed. Thought content: Rational, logical, no tangentiality noted, denies paranoia but may be experiencing related to housing, perseverative related to divorce and child custody Description of associations: Intact Description of abnormal or psychotic thoughts: Denies suicidal or homicidal ideation, denies auditory or visual hallucinations, does not appear to be responding to internal stimuli, does not endorse bizarre or seemingly paranoid ideation, denies preoccupation with violence or obsessions. Judgment: Limited, some improvement noted. Insight: Limited, some improvement noted. Orientation: A and O 3 Recent and remote memory: Appear intact. Attention span and concentration: Adequate. Language: Adequate. Fund of knowledge: Within normal limits. Mood: "I was feeling better before the weekend, I don't know if it's because court, or getting sick, or the medication." Patient appears anxious and irritable, mood lability noted Affect: Blunted, congruent with mood DIAGNOSES: Unspecified mood disorder, cocaine use disorder, severe, in withdrawal, rule out substance-induced mood disorder, rule out substance- induced psychosis, rule out major depressive disorder, rule out bipolar disorder , rule out polysubstance use disorder ASSESSMENT: Patient is 36-year-old male who appears to be slowly adjusting to unit, is visible and attending some groups, isolates to room at times, socializes selectively with peers, has not presented with behavior management challenges, is cooperative with staff, states he is attending most groups. Patient continues to minimize symptoms of substance abuse but expresses some insight in terms of behavior and events which led to current hospitalization, continues to blame father for being in hospital, has retracted ROIs for father and friend. Patient indicates that Seroquel was helpful in reducing symptoms and stabilizing mood, however, indicates today that he is not sure if medication is effective, adds he is also experiencing symptoms of head cold and frustration related to recent court case pertaining to custody of children. Patient is requesting adjustment to time of dosing of Seroquel in effort to see if medication is effective in stabilizing mood, improving sleep, reducing ruminative thinking, and reducing what may be morning medication side effects. Patient has been encouraged to practice good sleep hygiene and keep regular sleep schedule, and to not "push through" the medication at night. Patient denies symptoms of craving or withdrawal. Patient denies current suicidal or homicidal ideation and is able to verbalize how to access supportive services on the unit if needed. Will continue to monitor patient's response to medications and for medication side effects. Will also evaluate patient safety, resolution of suicidal ideation, and readiness for discharge. Patient continues to be receptive to assistance with discharge planning, referrals for housing, assistance with DSS an insurance application procedures, is aware he will need to present to DSS with proper documentation to complete application process after discharge. Patient reiterates when prepared for discharge he would like to follow-up with outpatient provider for psychotherapy and medication management; importance of medication compliance was again reviewed with patient. Inpatient substance abuse recommendation was again made, patient continues to decline both inpatient, outpatient, and substance abuse treatment. MANAGEMENT PLAN: Continue Seroquel to 200 XR mg po with change to hs dosing. Continue hydroxyzine 50 mg po q 6 hours PRN anxiety/agitation Maintain safety precautions Patient to attend groups and participate in unit programming to develop coping strategies Engage patient in discharge planning process and arrange meeting with support system to ensure safe discharge planning when appropriate Patient to follow up with PCM upon discharge TIME SPENT: 35 minutes. Vital Signs Vital Signs Date Time Temp Pulse Resp B/P (MAP) Pulse Ox O2 Delivery O2 Flow Rate FiO2 10/09/16 06:29 98.1 59 20 143/81 (101) Current Medications Current Medications Acetaminophen (Tylenol Tab) 650 mg Q6HP PRN PO HEADACHE or DISCOMFORT Last administered on 09/30/16 11:53; Start 09/29/16 at 21:30; Stop 10/29/16 at 21:29 Al Hydrox/Mg Hydrox/Simethicone (Mylanta) 30 ml Q4HP PRN PO HEARTBURN/ INDIGESTION; Start 09/29/16 at 21:30; Stop 10/29/16 at 21:29 Chlordiazepoxide (Librium) 25 mg TIDP PRN PO BENZO WITHDRAWL Last administered on 10/03/16 19:28; Start 09/29/16 at 21:30; Stop 10/04/16 at 18:42; Status DC Divalproex Sodium (Depakote Er) 250 mg QHS PO Last administered on 10/02/16 21 :08; Start 09/30/16 at 21:00; Stop 10/03/16 at 15:27; Status DC Divalproex Sodium (Depakote) 250 mg BID PO Last administered on 09/30/16 11:51 ; Start 09/29/16 at 21:00; Stop 09/30/16 at 12:31; Status DC Home Med (Med Rec Complete!) ASDIRECTED XX ; Start 09/29/16 at 17:45; Stop 05/06 at 17:45; Status DC Hydroxyzine HCl (Atarax) 50 mg Q6HP PRN PO ANXIETY/AGITATION Last administered on 10/04/16 17:25; Start 09/29/16 at 21:30; Stop 10/04/16 at 18:42; Status DC Hydroxyzine HCl (Atarax) 50 mg Q6HP PRN PO ANXIETY/AGITATION Last administered on 10/08/16 22:42; Start 10/06/16 at 13:45; Stop 11/05/16 at 13:44 Magnesium Hydroxide (Milk Of Magnesia) 30 ml DAILYPRN PRN PO CONSTIPATION; Start 09/29/16 at 21:30; Stop 10/29/16 at 21:29 Quetiapine Fumarate (SEROquel XR) 200 mg DAILY@1800 PO Last administered on 10/08/16 18:54; Start 10/06/16 at 18:00; Stop 11/05/16 at 17:59 Quetiapine Fumarate (SEROquel XR) 200 mg QHS PO ; Start 10/06/16 at 18:00; Stop 10/06/16 at 18:00; Status DC Quetiapine Fumarate (SEROquel XR) 200 mg QHS PO ; Start 10/06/16 at 21:00; Stop 10/06/16 at 21:00; Status DC Quetiapine Fumarate (SEROquel) 12.5 mg Q8HP PRN PO anxiety/agitation Last administered on 10/05/16 19:20; Start 10/04/16 at 18:45; Stop 10/06/16 at 14:01 ; Status DC Quetiapine Fumarate (SEROquel) 50 mg QHS PO Last administered on 10/03/16 21: 17; Start 10/03/16 at 21:00; Stop 10/04/16 at 18:42; Status DC Quetiapine Fumarate (SEROquel) 75 mg QHS PO Last administered on 10/04/16 21: 52; Start 10/04/16 at 21:00; Stop 10/05/16 at 11:11; Status DC Quetiapine Fumarate (SEROquel) 100 mg QHS PO Last administered on 10/05/16 21: 17; Start 10/05/16 at 21:00; Stop 10/06/16 at 14:01; Status DC Trazodone HCl (Desyrel) 50 mg QHSP PRN PO INSOMNIA Last administered on 00:11; Start 09/30/16 at 12:30; Stop 10/03/16 at 15:31; Status DC Trazodone HCl (Desyrel) 100 mg QHSP PRN PO INSOMNIA Last administered on 22:01; Start 09/29/16 at 21:30; Stop 09/30/16 at 12:31; Status DC Allergies Coded Allergies: Bee Venom (Unverified Allergy, Mild, SWELLING, 08/20/12) Erythromycin (Verified Allergy, Unknown, 09/29/16) Jaida Ballard October 09, 2016 11:25
[2016-10-09 18:00] VITALS: BP 145/84
[2016-10-09] MEDS: QUEtiapine FUMARATE **XR** 200MG TABLET PO SCH (20:29)
[2016-10-10 06:56] VITALS: BP 135/69
--- NOTE | 2016-10-10 09:24 | MHIPNPDOC ---
[facility] Progress Note Progress Note DATE OF SERVICE: 10/10/16 HISTORY: Patient is 36-year-old male admitted after being evaluated in the emergency room, is brought in for evaluation after father called indicating concerns about patient being depressed due to his divorce, visitation agreement , and financial problems. Patient reportedly made suicidal statements that he would kill himself due to feeling as if he is a burden to everyone. Father also reportedly indicated the patient had been exhibiting paranoia and called [facility] to request that they come to his house to check his phone equipment. Patient was discharged from [facility] 1.5 weeks ago on Depakote 500 mg hs. Predatory Animal Trapper met with patient today to assess treatment progress on inpatient unit. Patient is observed to be up out of bed today, has been attending groups, indicates he has a head cold which he feels is causing symptoms fatigue and congestion. Patient indicates Seroquel XR is effective and he denies medication side effects, prefers hs dosing and states medication is helping to control symptoms of anxiety and depression, reports improvement to mood. Patient is more engageable today, denies symptoms of irritability, agitation, impulsivity, and mood lability. Patient reports improvement to sleep last night, denies nightmares symptoms, is aware he has PRN anxiolytic available to him if needed. Sleep hygiene was again reviewed with patient and patient was strongly encouraged to maintain regular awake/sleep pattern. Patient denies suicidal and homicidal ideation, denies audiovisual hallucinations, denies urge to engage in self-injurious behavior. Patient states he is attempting to contact veneer splicer regarding recent custody court case. Patient today indicates he plans to secure housing through [facility] but will stay with friend until able to do so, is future oriented and indicates he plans to get a job and secure housing close to where his children live with his ex- so that he may have contact with his children. Patient denies symptoms of craving or withdrawal, indicates appetite is stable, denies challenges with concentration and focus. Of Note: [facility] background information received, patient apparently declined Seroquel and Latuda trial while in treatment there citing lack of insurance, patient also apparently neglected to follow through with outpatient services post discharge from [facility]. Per [facility] paperwork, patient was treated with Depakote and responded well to medication. Collateral information received by utilization coordinator on 10/04/16 indicates prior to hospitalization at [facility] and current hospitalization patient was disorganized experiencing delusional thinking, psychosis, paranoia, was fixated on computer/phone being tapped, has apartment on which he has not paid rent and from which he may been evicted, has notable cocaine use history. Collateral information also indicates patient had no psychiatric history until approximately one month ago, approximately the time patient states he began using cocaine. Collateral information indicates when patient did have contact with children they were left in the care of family member while patient engaged in alcohol/ drug use. Per utilization coordinator, patient declined insurance application on 10/03/16. I-Stop review completed. Patient was provided 10 day supply of Xanax 0.5 mg, indicates there exists no leftover medication and denies additional use of benzodiazepines. VITAL SIGNS: See below. NEW TEST RESULTS: No new results. Labs at time of admission indicate elevated chloride and low anion gap, AST. MEDICAL/SURGICAL HISTORY: Patient denies, also denies history of head injury or seizure UDS positive for cocaine 09/29/16 chest x-ray negative 09/29/16 EKG sinus rhythm with sinus arrhythmia and nonspecific T-wave abnormality no prior for comparison. Patient is asymptomatic, PA is aware, follow-up outpatient CURRENT MEDICATIONS: See below. MENTAL STATUS EXAMINATION: Patient is a 36-year old male, who is cooperative, engageable, makes fair eye contact, exhibits adequate personal hygiene, ambulates with steady gait, appears stated age. Speech: Is of normal rate, rhythm, volume, monotone, coherent Language skills are within normal limits Thought processes including: Linear, logical, goal-directed. Thought content: Rational, logical, no tangentiality noted or paranoia noted Description of associations: Intact Description of abnormal or psychotic thoughts: Denies suicidal or homicidal ideation, denies auditory or visual hallucinations, does not appear to be responding to internal stimuli, does not endorse bizarre or seemingly paranoid ideation, denies preoccupation with violence or obsessions. Judgment: Limited, some improvement noted. Insight: Limited, some improvement noted. Orientation: A and O 3 Recent and remote memory: Appear intact. Attention span and concentration: Adequate. Language: Adequate. Fund of knowledge: Within normal limits. Mood: "I'm a little better today, I have a head cold." Patient appears less anxious, less depressed, no mood lability noted Affect: Constricted, brightens at times, congruent with mood DIAGNOSES: Unspecified mood disorder, cocaine use disorder, severe, in withdrawal, rule out substance-induced mood disorder, rule out substance- induced psychosis, rule out major depressive disorder, rule out bipolar disorder , rule out polysubstance use disorder ASSESSMENT: Patient is 36-year-old male who appears to be slowly adjusting to unit, is visible and attending some groups, isolates to room at times, socializes selectively with peers, has not presented with behavior management challenges, is cooperative with staff, states he is attending most groups. Patient minimizes symptoms of substance abuse less today, expresses more insight related to behavior and events which led to current hospitalization , however, continues to blame father for being in the hospital and has retracted ROIs for father and friend. Patient indicates that Seroquel is helpful in reducing symptoms and stabilizing mood, denies medication side effects and denies need for dosing adjustment, indicates change in time of dosing is helpful in stabilizing mood. Patient indicates he is experiencing symptoms of head cold. Patient reports improved sleep, reduced ruminative thinking. Patient was encouraged to practice good sleep hygiene and keep regular schedule, and to not "push through" the medication at night. Patient denies symptoms of craving or withdrawal. Patient denies current suicidal or homicidal ideation and is able to verbalize how to access supportive services on the unit if needed. Will continue to monitor patient's response to medications and for medication side effects. Will also evaluate patient safety, resolution of suicidal ideation, and readiness for discharge. Patient continues to be receptive to assistance with discharge planning, referrals for housing, assistance with DSS an insurance application procedures, is aware he will need to present to DSS with proper documentation to complete application process after discharge. Patient reiterates when prepared for discharge he would like to discharge to home of friend where he will stay until he can secure housing, and follow-up with outpatient provider for psychotherapy and medication management. The importance of medication compliance was again reviewed with patient. Inpatient substance abuse recommendation was again made, patient continues to decline both inpatient, outpatient, and NA substance abuse treatment. MANAGEMENT PLAN: Continue Seroquel to 200 XR mg po with change to hs dosing. Continue hydroxyzine 50 mg po q 6 hours PRN anxiety/agitation Maintain safety precautions Patient to attend groups and participate in unit programming to develop coping strategies Engage patient in discharge planning process and arrange meeting with support system to ensure safe discharge planning when appropriate Patient to follow up with PCM upon discharge TIME SPENT: 35 minutes. Vital Signs Vital Signs Date Time Temp Pulse Resp B/P (MAP) Pulse Ox O2 Delivery O2 Flow Rate FiO2 10/10/16 06:56 98.6 78 16 135/69 (91) Current Medications Current Medications Acetaminophen (Tylenol Tab) 650 mg Q6HP PRN PO HEADACHE or DISCOMFORT Last administered on 09/30/16 11:53; Start 09/29/16 at 21:30; Stop 10/29/16 at 21:29 Al Hydrox/Mg Hydrox/Simethicone (Mylanta) 30 ml Q4HP PRN PO HEARTBURN/ INDIGESTION; Start 09/29/16 at 21:30; Stop 10/29/16 at 21:29 Chlordiazepoxide (Librium) 25 mg TIDP PRN PO BENZO WITHDRAWL Last administered on 10/03/16 19:28; Start 09/29/16 at 21:30; Stop 10/04/16 at 18:42; Status DC Divalproex Sodium (Depakote Er) 250 mg QHS PO Last administered on 10/02/16 21 :08; Start 09/30/16 at 21:00; Stop 10/03/16 at 15:27; Status DC Divalproex Sodium (Depakote) 250 mg BID PO Last administered on 09/30/16 11:51 ; Start 09/29/16 at 21:00; Stop 09/30/16 at 12:31; Status DC Home Med (Med Rec Complete!) ASDIRECTED XX ; Start 09/29/16 at 17:45; Stop 05/06 at 17:45; Status DC Hydroxyzine HCl (Atarax) 50 mg Q6HP PRN PO ANXIETY/AGITATION Last administered on 10/04/16 17:25; Start 09/29/16 at 21:30; Stop 10/04/16 at 18:42; Status DC Hydroxyzine HCl (Atarax) 50 mg Q6HP PRN PO ANXIETY/AGITATION Last administered on 10/08/16 22:42; Start 10/06/16 at 13:45; Stop 11/05/16 at 13:44 Magnesium Hydroxide (Milk Of Magnesia) 30 ml DAILYPRN PRN PO CONSTIPATION; Start 09/29/16 at 21:30; Stop 10/29/16 at 21:29 Quetiapine Fumarate (SEROquel XR) 200 mg DAILY@1800 PO Last administered on 10/08/16 18:54; Start 10/06/16 at 18:00; Stop 10/09/16 at 16:58; Status DC Quetiapine Fumarate (SEROquel XR) 200 mg QHS PO ; Start 10/06/16 at 18:00; Stop 10/06/16 at 18:00; Status DC Quetiapine Fumarate (SEROquel XR) 200 mg QHS PO ; Start 10/06/16 at 21:00; Stop 10/06/16 at 21:00; Status DC Quetiapine Fumarate (SEROquel XR) 200 mg QHS PO Last administered on 20:29; Start 10/09/16 at 21:00; Stop 11/05/16 at 17:59 Quetiapine Fumarate (SEROquel) 12.5 mg Q8HP PRN PO anxiety/agitation Last administered on 10/05/16 19:20; Start 10/04/16 at 18:45; Stop 10/06/16 at 14:01 ; Status DC Quetiapine Fumarate (SEROquel) 50 mg QHS PO Last administered on 10/03/16 21: 17; Start 10/03/16 at 21:00; Stop 10/04/16 at 18:42; Status DC Quetiapine Fumarate (SEROquel) 75 mg QHS PO Last administered on 10/04/16 21: 52; Start 10/04/16 at 21:00; Stop 10/05/16 at 11:11; Status DC Quetiapine Fumarate (SEROquel) 100 mg QHS PO Last administered on 10/05/16 21: 17; Start 10/05/16 at 21:00; Stop 10/06/16 at 14:01; Status DC Trazodone HCl (Desyrel) 50 mg QHSP PRN PO INSOMNIA Last administered on 00:11; Start 09/30/16 at 12:30; Stop 10/03/16 at 15:31; Status DC Trazodone HCl (Desyrel) 100 mg QHSP PRN PO INSOMNIA Last administered on t 22:01; Start 09/29/16 at 21:30; Stop 09/30/16 at 12:31; Status DC Allergies Coded Allergies: Bee Venom (Unverified Allergy, Mild, SWELLING, 08/20/12) Erythromycin (Verified Allergy, Unknown, 09/29/16) Jaida Ballard October 10, 2016 09:24
[2016-10-10 18:00] VITALS: BP 149/71
[2016-10-10] MEDS: QUEtiapine FUMARATE **XR** 200MG TABLET PO SCH (20:22)
[2016-10-10] MEDS ORDERED: NAPROXEN 250 MG TAB PO SCH (21:00)
[2016-10-10] MEDS: hydrOXYzine 50 MG TAB PO PRN (22:35)
[2016-10-11 06:47] VITALS: BP 146/65
--- NOTE | 2016-10-11 09:03 | MHDSPDOC ---
[facility] Discharge Summary Discharge Summary DATE OF ADMISSION: September 29, 2016 at 18:58 DATE OF DISCHARGE: October 11, 2016 HISTORY: Patient is 36-year-old male admitted to our unit in a 9.39 legal status. According to the chart, the patient was evaluated in the emergency department. He appeared to be angry and anxious. It is stated that his father called earlier and stated that he was concerned about the patient being depressed due to his divorce and visitation agreement with his children and also that the patient is having financial problems. The father reported that the patient made suicidal statements that he would kill himself because of feeling like a burden to everyone. The father also said that the patient is acting paranoid stating that someone has been tampering with his phone. He has called [employer] complaining of such and had them come to his house to check on the phone equipment. It is reported that he called [employer] again before admission. The patient states that he has been using cocaine, most recently two days ago. He was discharged from [facility] one week ago. The patient is minimizing the chain of events and denying suicidal ideation and the fact that he needs to be here. After he was discharged from the hospital, he was prescribed to take Depakote, but says that he has not been taking it in two days because "it makes me feel tired and foggy. " During the interview today, the patient reports excessive sedation. The patient is lying in bed with his eyes closed. He reports that the medication is making him very drowsy and he is making statements such as "When I am discharged from the hospital, I will be getting out of the state." The patient reports having very poor social support and he said that "in the last week or two everybody is gone." The patient reports no support from friends or family. During the interview, there is no evidence of psychotic symptoms. No auditory or visual hallucinations. The patient appears angry, although he states that he is not angry. PAST PSYCHIATRIC HISTORY: The patient states that he was diagnosed with bipolar disorder and cocaine dependency and was supposed to take Depakote 500 mg at bedtime but has not been taking it because of the side effects from medication with excessive sedation. MEDICAL/SURGICAL HISTORY: Patient denies, also denies history of head injury or seizure. Labs at time of admission indicate elevated chloride and low anion gap, AST. UDS positive for cocaine 09/29/16 chest x-ray negative 09/29/16 EKG sinus rhythm with sinus arrhythmia and nonspecific T-wave abnormality no prior for comparison. Patient is asymptomatic, PA is aware, follow-up outpatient. FAMILY PSYCHIATRIC HISTORY: The patient denies any psychiatric family history. The patient also denies any drugs or alcohol problem in any relative. SOCIAL HISTORY: At time of admission patient indicated he was living by himself In an apartment, indicated he has limited support system, is currently unemployed. 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 Patient was raised by both parents and denies any abuse or neglect during childhood, reports a completely normal childhood. The patient graduated high school. SUBSTANCE ABUSE HISTORY: The patient admits using cocaine. TREATMENT PROGRESS ON UNIT: Patient is 36-year-old male who has adjusted to unit, was initially isolative and withdrawn, has become visible and has been attending groups, socializing selectively with staff and peers, has presented with no behavior management challenges. Patient is exhibiting increasing insight with regard to substance abuse, also expresses increased insight related to behavior and events which preceded current hospitalization. Patient indicates he understands why father/friend were concerned about his well -being, states he is no longer angry and denies harboring animosity toward father or friend. Patient indicates Seroquel is helpful in controlling symptoms and stabilizing mood, denies medication side effects and denies need for dosing adjustment, indicates change in time of dosing is helpful in stabilizing mood. Patient indicates he is experiencing symptoms of head cold but feels better today than yesterday. Patient states he is now sleeping well, denies ruminative thinking and denies nightmares. Patient was again encouraged to practice good sleep hygiene and maintain regular schedule. Patient has been utilizing hydroxyzine PRN to address intermittent symptoms of anxiety with good effect reported, denies medication side effects, is requesting small quantity prescription at discharge. The importance of medication compliance was again reviewed with patient. Patients recent EKG results were reviewed with him and patient was instructed to follow-up with outpatient provider, patient is asymptomatic and denies symptoms of shortness of breath, dizziness, chest pain, palpitations, headache. Patient denies symptoms of craving or withdrawal. Patient denies symptoms of anxiety and depression, denies homicidal ideation, denies auditory or visual hallucinations, and denies urge to engage in self- injurious behavior. Patient further denies symptoms of suicidal ideation and is able to verbalize concrete strategies for mitigating symptoms should they reemerge. Patient denies symptoms of irritability, agitation, impulsivity, and mood lability, reports improvement to energy level, concentration of focus, and states appetite is stable. Patient is future oriented, indicates he intends to seek employment and secure housing close to his children so that he may have contact with his children noting, I want to be there for my kids. Patient has accepted help with discharge planning, referrals for housing, assistance with DSS, and insurance application have been made. Patient is aware he will need to present to [facility] with proper documentation to complete the outpatient process after discharge. Patient is requesting discharge today and family/support meeting has been completed with patients friend who denies having concerns regarding patients safety or readiness for discharge. Inpatient substance abuse has been recommended and patient has declined both inpatient and outpatient, and NA substance abuse treatment. Patient will discharge to home of friend where he will stay until he is able to secure housing and he will be following up with [facility] for outpatient psychotherapy and medication management services. Patient verbalizes understanding of and agreement with discharge plan. MENTAL STATUS EXAMINATION ON DISCHARGE: Patient is a 36-year old male, who is calm and cooperative, engageable, makes adequate eye contact, exhibits adequate personal hygiene, ambulates with steady gait, appears stated age. Speech: Is of normal rate, rhythm, volume, monotone, coherent Language skills are within normal limits Thought processes including: Linear, logical, goal-directed. Thought content: Rational, logical, no tangentiality or paranoia noted Description of associations: Intact Description of abnormal or psychotic thoughts: Denies suicidal or homicidal ideation, denies auditory or visual hallucinations, does not appear to be responding to internal stimuli, does not endorse bizarre or seemingly paranoid ideation, denies preoccupation with violence or obsessions. Judgment: Adequate, has improved during treatment Insight: Fair, some improvement noted. Orientation: A and O 3 Recent and remote memory: Appear intact. Attention span and concentration: Adequate. Language: Adequate. Fund of knowledge: Within normal limits. Mood: "Except for my head cold I'm feeling good and I'm ready to discharge." Patient denies anxiety and depression, no mood lability noted Affect: Mild constriction, brightens, congruent with mood CONDITION ON DISCHARGE: Stable, no suicidal or homicidal ideation DIAGNOSES ON DISCHARGE: Unspecified mood disorder, cocaine use disorder, severe , in withdrawal, rule out substance-induced mood disorder, rule out substance- induced psychosis, rule out major depressive disorder, rule out bipolar disorder , rule out polysubstance use disorder MEDICATIONS ON DISCHARGE: See below FOLLOW UP PLAN: Continue Seroquel to 200 XR mg po q hs and hydroxyzine 50 mg po q 6 hours PRN anxiety/agitation Patient to discharge to home of friend today and to be transported by friend and will follow up with [facility] for outpatient psychotherapy and medication management services Patient to follow up regarding recent EKG results and any other health concerns with PCM within 5-7 days of discharge TIME SPENT COORDINATING CARE: 25 minutes Vital Signs/I&Os Vital Signs Date Time Temp Pulse Resp B/P (MAP) Pulse Ox O2 Delivery O2 Flow Rate FiO2 10/11/16 06:47 97.6 55 16 146/65 (92) Medications Scheduled Quetiapine Fumarate (Seroquel Xr) 200 Mg Davon, 200 MG PO QHS for MOOD, #7 Scheduled PRN Hydroxyzine HCl (Hydroxyzine HCl) 50 Mg Tab, 50 MG PO Q6HP PRN for ANXIETY/ AGITATION, #7 Allergies Coded Allergies: Bee Venom (Unverified Allergy, Mild, SWELLING, 08/20/12) Erythromycin (Verified Allergy, Unknown, 09/29/16) Jaida Ballard October 11, 2016 09:03
[2016-10-11] MEDS ORDERED: HYDRO50TAB PO (16:20)
[2016-10-11] MEDS ORDERED: QUET20XRTB PO (16:20)
[2016-10-11] MEDS: QUEtiapine FUMARATE **XR** 200MG TABLET PO SCH (20:21)
== END 2016-10-11 21:22 | disposition home or self-care (01) | DRG 753 ==
LOC: M ED 16:05 → M ED INP 18:58 → M PSY 20:30
PROVIDERS: ADMIT Psychiatry & Neurology Psychiatry; ATTEND Psychiatry & Neurology Psychiatry
DX: F39 Unspecified mood [affective] disorder (principal); F19.94 Other psychoactive substance use, unspecified with psychoactive substance-induced mood disorder; F32.9 Major depressive disorder, single episode, unspecified; F31.9 Bipolar disorder, unspecified; F14.23 Cocaine dependence with withdrawal; Z59.8 Other problems related to housing and economic circumstances; Z88.0 Allergy status to penicillin; Z91.038 Other insect allergy status; Z79.899 Other long term (current) drug therapy

== ENCOUNTER 2017-03-07 08:04 | Emergency (ER) | payer BC, MEDICAID, SELFPAY ==
[~2017-03-07] VITALS: Ht 175.3 cm; Wt 90.9 kg
[~2017-03-07 08:04] MED LIST: ALPR0.5T3; DIVA500T3 PO; HYDRO50TAB PO; QUET20XRTB PO; XANA0.5T PO
[2017-03-07] MEDS ORDERED: ZOLP5TAB PO (08:14)
[2017-03-07] MEDS ORDERED: TETRACAINE 0.5% OPHTH SOLN 4ML OS ONE (09:30)
[2017-03-07] MEDS ORDERED: FLUORESCEIN OPHTH 1 MG STRIP OS ONE (09:30)
[2017-03-07] MEDS ORDERED: CIPR0.3S OS (09:51)
[2017-03-07 10:12] VITALS: BP 170/87
== END 2017-03-07 10:13 | disposition home or self-care (01) ==
LOC: M ED 08:04
DX: S05.02XA Injury of conjunctiva and corneal abrasion without foreign body, left eye, initial encounter (principal); X58.XXXA Exposure to other specified factors, initial encounter; Y92.89 Other specified places as the place of occurrence of the external cause; Y93.89 Activity, other specified; Y99.8 Other external cause status; Z79.899 Other long term (current) drug therapy; Z91.030 Bee allergy status; Z88.1 Allergy status to other antibiotic agents

== ENCOUNTER → 2018-03-19 | Outpatient (CLI) | payer OTHER | LOC: M WUC 09:49 | DX: M79.641 Pain in right hand (principal) | CPT/HCPCS: 73130 ==